=== PATIENT | female | born 1970 | race Two or more races ===

== ENCOUNTER 2023-06-14 21:53 | Emergency (ER) | payer SELFPAY ==
[~2023-06-14] VITALS: Ht 152.4 cm; Wt 61.0 kg
[2023-06-14 22:13] VITALS: BP 169/84; PULSE 78; RESP 20; O2SAT 98
== END 2023-06-14 23:31 | disposition left against medical advice (07) ==
LOC: ER 21:53
DX: J02.9 Acute pharyngitis, unspecified (principal); R09.89 Other specified symptoms and signs involving the circulatory and respiratory systems; Z53.21 Procedure and treatment not carried out due to patient leaving prior to being seen by health care provider